=== PATIENT | female | born 1975 ===

== ENCOUNTER 2017-05-21 09:22 | Day surgery (SDC) | payer SELFPAY ==
[2015-12-21 16:01] VITALS: BMI 30.2
[2017-05-21 10:00] LABS: HEMOGLOBIN 10.8 g/dL (12.0-16.0); MEAN CELL VOLUME 81.8 fl (81.0-99.0); MEAN CORPUSCULAR HEMOGLOBIN 26.1 pg (27.0-31.0); RBC 4.13 Mil/uL (3.80-5.20); RED CELL DISTRIBUTION WIDTH 15.8 % (11.5-14.5); WHITE BLOOD COUNT 8.8 K/uL (4.8-10.8)
[2017-05-21] MEDS ORDERED: Lactated Ringer's 1,000 ML IV ONE ×3 (10:30→14:55)
--- NOTE | 2017-05-21 11:25 | CP.SDSHP ---
Same Day Surgery H & P - History Proposed Procedure: Incisional Hernia Repair, with mesh Pre-Op Diagnosis: Incisional Hernia - Previous Medical/Surgical History Previous Surgical History: x2 - Allergies Allergies: Allergies No Known Allergies Allergy (Verified 12/21/15 16:02) - Physical Exam General Appearance: NAD, well noursihed Vital Signs: Vital Signs 05/21/17 05/21/17 09:56 10:08 Temperature 100.2 F H Pulse Rate 84 84 Respiratory 20 Rate Blood Pressure 144/90 O2 Sat by Pulse 99 Oximetry Mental Status: Alert & Oriented x3 Neuro: WNL Heart: WNL Lungs: WNL GI: WNL - {Optional Preform as Required} Abdomen: Other (RLower abdominal hernia near prior csection incision) - Impression Impression: 41 yo F w/ incisional hernia Pt. Evaluated Today:Candidate for Anesthesia & Procedure: Yes - Date & Time Date: 05/21/17 Time: 11:25 Short Stay Discharge - Short Stay Discharge Admitting Diagnosis/Reason for Visit: K43.2 Disposition: HOME/ ROUTINE Medications: oxyCODONE/Acetaminophen [Percocet 5/325 mg Tab] 1 ea PO Q4H PRN #20 tab PRN Reason: Pain, Moderate (4-7) Referrals: Carmina Benavides MD [Primary Care Provider] - Bobby Mtz MD [Staff Provider] - Follow-up: 1 week Additional Instructions (Diet, Activity): Resume regular diet and light activities including walking. No heavy lifting or abdominal exercise for 4 weeks. Make an appt to see Dr. Mtz in office in 1 week. Take percocet as needed for pain.
[2017-05-21] MEDS ORDERED: Midazolam 2 MG/2 ML VIAL ONE (11:54)
[2017-05-21] MEDS ORDERED: Neostigmine Methylsulfate 3mg/3ml Syringe IV ONE (11:54)
[2017-05-21] MEDS ORDERED: Rocuronium 10 mg/ml (5 ml) ONE (11:54)
[2017-05-21] MEDS ORDERED: Succinylcholine 200 mg/10 ml Inj IV ONE (11:54)
[2017-05-21] MEDS ORDERED: Propofol 10 mg/ml Inj (20 ML) ONE (11:54)
--- NOTE | 2017-05-21 13:34 | PCM.SURG1 ---
Surgeon's Initial Post Op Note - Surgeon's Notes Surgeon: Dr. Mtz Welding Rod Coater: Dr Lazaro Kilgore Type of Anesthesia: General Endo Anesthesia Administered By: Binta Pre-Operative Diagnosis: Incisional Hernia Operative Findings: same Post-Operative Diagnosis: same Operation Performed: Incisional Hernia repair, with Mesh Specimen/Specimens Removed: Prolene Mesh inserted Estimated Blood Loss: EBL {In ML}: 10 Blood Products Given: N/A Drains Used: No Drains Post-Op Condition: Good Date of Surgery/Procedure: 05/21/17 Time of Surgery/Procedure: 13:34
--- NOTE | 2017-05-21 13:41 | PCM.OP ---
Operative Report - Operative Report Date of Surgery/Procedure: 05/21/17 Time of Surgery/Procedure: 13:38 Surgeon: Davis Mtz Candy Maker: Tori Aaron Anesthesia/Sedation: General, Dr Judd Pre-Operative Diagnosis: Incisional hernia Post-Operative Diagnosis: Incisional hernia Indication for Surgery: Incisional hernia at site of previous Operative Findings: Well formed hernia sac below umbilicus extending into subcutaneous tissue of RLQ. No incarcerated contents. Procedure/Operation Description: Hernia sac excised. Defect 3" in diameter, closes transversely with minimal tension. Stay sutures of 0-Prolene placed above and below defect which was then closed with 0-PDS running suture; overlay of Prolene mesh fixed over repair with previously placed sutures. 3-0 Vicryl subcutaneous, stapled skin closure Estimated Blood Loss: 10ml Drains: none Complications: none Specimen: Hernia sac and excess skin Discharge & Condition: To recovery room in stable condition
[2017-05-21] MEDS ORDERED: Lactated Ringer's 1,000 ML IV SCH (14:25)
[2017-05-21] MEDS ORDERED: HYDROmorphone 0.5 mg/0.5 ml ISec IVP PRN (14:25)
[2017-05-21 14:45] VITALS: RESP 18
[2017-05-21 17:03] VITALS: BP 151/85; PULSE 65; TEMP 98.3; O2SAT 97
--- NOTE | 2017-05-22 09:59 | CP.SDSHP ---
Same Day Surgery H & P - Allergies Allergies: Allergies No Known Allergies Allergy (Verified 12/21/15 16:02) - Current Medications Current Medications: Home Medication List Medication Instructions Recorded Confirmed Type oxyCODONE/Acetaminophen [Percocet 1 ea PO Q4H PRN #20 tab 05/21/17 Rx 5/325 mg Tab] Short Stay Discharge - Short Stay Discharge Admitting Diagnosis/Reason for Visit: K43.2 Disposition: HOME/ ROUTINE Medications: oxyCODONE/Acetaminophen [Percocet 5/325 mg Tab] 1 ea PO Q4H PRN #20 tab PRN Reason: Pain, Moderate (4-7) Referrals: Bobby Mtz MD [Staff Provider] - Carmina Benavides MD [Primary Care Provider] - Additional Instructions (Diet, Activity): Resume regular diet and light activities including walking. No heavy lifting or abdominal exercise for 4 weeks. Make an appt to see Dr. Mtz in office in 1 week. Take percocet as needed for pain. Progress Note/Discharge Note with Instructions: Tolerating po, pain controlled. Stable postop
== END 2017-05-21 17:52 | disposition home or self-care (01) ==
LOC: H.OPSURG 09:22
PROVIDERS: ATTEND Specialist
DX: K43.2 Incisional hernia without obstruction or gangrene (principal)